=== PATIENT | male | born 1975 | race Caucasian/White ===

== ENCOUNTER 2017-01-06 06:01 | Inpatient (IN) | payer OTHER ==
[~2017-01-06] VITALS: Ht 180.3 cm; Wt 100.0 kg
[2017-01-06] MEDS ORDERED: NURSING VERBAL MED ORDER ONE (07:00)
[2017-01-06] MEDS: PATIENT'S ALLERGY INFO NEEDS ENTERED SCH ×2 (07:30→08:00)
[2017-01-06 09:51] VITALS: BP 107/70; PULSE 85; TEMP 36.7; BMI 30.7
[2017-01-06] MEDS ORDERED: QUET1TAB37 PO (10:13)
[2017-01-06] MEDS ORDERED: VENL150C56 PO (10:13)
[2017-01-06] MEDS ORDERED: PRAZ5CAP2 PO (10:13)
[2017-01-06] MEDS ORDERED: GABA-113 PO ×3 (10:13)
[2017-01-06] MEDS ORDERED: IBUP-1450 PO (10:13)
[2017-01-06] MEDS ORDERED: DIVA500T5 PO ×2 (10:13)
[2017-01-06] MEDS ORDERED: ACETAMINOPHEN 325 MG TAB PO PRN (11:45)
[2017-01-06] MEDS ORDERED: MAGNESIUM HYDROXIDE SUSP 30 ML UDC PO PRN (11:45)
[2017-01-06] MEDS ORDERED: hydrOXYzine HCL 25 MG TAB PO PRN ×2 (11:45)
[2017-01-06] MEDS ORDERED: BISMUTH SUBSALICYLATE PER ML OMNICELL CHARGE PO PRN (11:45)
[2017-01-06] MEDS ORDERED: SODIUM CHLORIDE 0.65% NA SOLN 45 ML (OCEAN) PRN (11:45)
[2017-01-06] MEDS ORDERED: ALUMINUM/MAGNESIUM SUSP 30 ML UDC PO PRN (11:45)
[2017-01-06] MEDS ORDERED: VENLAFAXINE HCL XR 150 MG CAPXR PO ONE (13:08)
[2017-01-06] MEDS ORDERED: GABAPENTIN 600 MG TAB PO ONE (13:08)
[2017-01-06] MEDS ORDERED: IBUPROFEN 600 MG TAB PO PRN (13:30)
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
[2017-01-06] MEDS: QUETIAPINE FUMARATE 300 MG TAB PO SCH (21:54)
[2017-01-06] MEDS: GABAPENTIN 600 MG TAB PO SCH (21:55)
[2017-01-06] MEDS: DIVALPROEX SODIUM 500 MG DELAY RELEASE TAB PO SCH (21:56)
[2017-01-06] MEDS ORDERED: PRAZOSIN HCL 1 MG CAP PO SCH (22:00)
[2017-01-07 06:58] VITALS: BP_SYST 104; BP_SYST 91; BP_DIAS 61; BP_DIAS 69; PULSE 80; PULSE 89; TEMP 36.5
[2017-01-07 07:02] VITALS: Ht 180.3 cm; Wt 100.0 kg
[2017-01-07] MEDS: NICOTINE 21 MG/24 HR TDSY EXT SCH (08:22)
[2017-01-07] MEDS: GABAPENTIN 600 MG TAB PO SCH ×3 (08:23→21:26)
[2017-01-07] MEDS ORDERED: VENLAFAXINE HCL XR 150 MG CAPXR PO SCH (09:00)
--- NOTE | 2017-01-07 12:21 | Psychiatric Progress Notes ---
Progress Note Date of Service January 07, 2017. Interval History Eugene Ortiz is a 41-year-old male who currently lives in an [facility] at a [facility] named [facility]. Eugene Ortiz was admitted on a 201 voluntary commitment on 01/06/17. Patient is admitted from the [facility] where he had arrived by ambulance after being discovered to have cut his left arm at his residence in an attempt of suicide. Information provided by the patient is considered to be reliable. Chief Complaint "I slept all day". Subjective Patient was seen & assessed interval progress reviewed with Nursing and 24hour chart reviewed. He slept in the afternoon yesterday did not go to groups, woke evening and had cereal watche a part of a movie, took his meds. He slept overnight and woke up around 645 for vitals and blood draw, remaining in bed since then. He feels tired today, went to community group. He felt uncomfortable "not ready for goals and being around others...I felt like my body was there but my mind was somewhere else" He continues to complain of nightmares "nothing has helped how real and vivid the dreams are." He continues to feel profoundly depressed and hopeless, with low energy and low motivation and has ongoing suicidal ideations passive at this time while inpatient. Further past history: He reports at [facility] working with Flako Merritt he had > 8months of mindfulness individual and group work. He states it helped him push out some of the intrusive trauma thoughts. "that helped me get through when I got asked to leave my prison" he states he was falsely accused of having a woman stay over when he was not. He initially stayed at a friends' houses for a few days at a time. He was at [employer] at [facility] and when his 30days was up, he went to [facility] for 3-4 weeks. Review of Systems ROS: left arm pain with tenderness, bilateral hand stiffness that is usual for his arthritis feels tired c/o weight gain with medications over the last 1 year o/w denies concerns other than above Sleep Information Total Hours of Sleep: 9.25 Meal Information Percent of Breakfast Consumed: 90 Percent of Lunch Consumed: 100 Percent of Dinner Consumed: 100 Mental Status Exam During interview pt is: alert and oriented Appearance: appropriately dressed, disheveled (just woken from bed), other ( left forearm with sutures, 1inch margin of erythema tender to light palpation, normal cap refill and range of motion of extremity, no drainage intact sensation ) Eye contact is: good Motor behavior is: steady gait & station, no abnormal motor movements Speech: normal in rate, rhythm & volume (low tone) Affect: depressed Mood is: depressed Thought process: goal directed, linear, logical, clear, coherent Thought content: hopelessness, worthlessness Suicidal thought are: present, Plan: denied, Intent: denied Homicidal thoughts are: denied Hallucinations: denies auditory, denies visual Intelligence estimated to be: average Insight: fair Judgement: poor Impression The patient is a 41yo male with a history of Bipolar disorder by history current depressed severe without psychotic features, PTSD and possibly ABHILASH with remitted substance use disorders (Alcohol, heroin, cocaine, narcotic pain pills , benzos) with >year abstinence form illicits and 9months from alcohol who had suicide attempt on 01/05/17 by cutting his forearm with intent to now under 201 voluntary admission willing for treatment. Plan (1) Bipolar disorder, most recent episode depressed 01/06/17 - inpatient care is least restrictive and most appropriate setting for care at this time continue depakote but optimize from 1500mg /d (level 49) to 2000mg/d and check level in 5days (on or after 01/11/17) -Continue effexor XR 300mg/d for now -Continue seroquel 600mg/hs for now -milieu, group therapy, safety planning, and consideration for ways to find meaning and purpose 01/07/17 - he is tired today unclear if this is depakote or not as he was sleeping all day yesterday as well - stop prazosin as no reported benefit - continue seroquel 600mg/hs - had effexor 300mg already today, will reduce it to 225mg tomorrow as not fully effective and plan to make room for wellbutrin trial - wellbutrin SR 100mg/AM starting 01/08/17 with plan to titrate up as reducing effexor (2) PTSD (post-traumatic stress disorder) 01/06/17 - medications as above, and group and milieu, monitor for s/sx of ABHILASH 01/07/17 - stop prazosin as not helpful for nightmares, see med changes under depression, watch anxiety and PTSD as we reduce effexor and add wellbutrin for mood above; consider if effexor is needed overtime (it is the only 5HT medication he has tolerated other than seroquel's indirect 5HT impact), he reports gabapentin has been most helpful for his anxiety over the past year, ( was increased from 600 tid to 600/600/1200 in the Fall 2015 to target poor sleep and he remains on this dose) (3) Polysubstance dependence in early, early partial, sustained full, or sustained partial remission Patient is abstinent from illicit substances and alcohol Prompt for setting ongoing goals for supports to remain abstinence after discharge (e.g. D&A counseling , NA, AA, etc) (4) Laceration 01/06/17 -keep clean and dry, change dressing daily,stitches to be removed in 10-14 days (between 01/15 and 01/21/17) prn ibuprofen or tylenol for discomfort 01/07/17 - erythema appears beginning of infection, consult to IM for assistance with choice and duration of ABx and assistance monitoring (used pen to draw line around wound for now to track degree of inflamation), continue other measures as above (5) Nicotine dependence The patient is a current heavy smoker but does not want to quit and declines brief intervention for tobaccos cessation. Accepted nicotine replacement patch. (6) Thyroid activity decreased 01/06/17 -repeat TFT's in AM to rule out impact of distress on levels prior to considering further tx of note low thyroid could be contributing to patient's depression 01/07/17 -repeat TSH WNL, and FT4 slightly low. Discussion with internal medicine and patient will not start levothyroxine at this time in favor of other medication changes, and recheck TFT's through PCM in 4 weeks to see if trending abnormally Discharge / Aftercare Planning Primary Care Physician: Name: Dr Renee Therapist: Name: keisha Guitar Repairer: Name: keisha Visit Code E&M Code: 19306 (>50% of the 45min spent in coordinating care discussing arm, thyroid and discuss r/b/se/a of multiple med changes) Inventory Assets Strengths: willingness for care compliant with medications Needs: social supports outpatient behavioral health providers safety Risk Factors Assessment Male: Yes : Yes /single/: Yes Higher / Fall in social status: Yes Mental Health Diagnoses: Yes Substance use disorders: Yes Previous attempt: No Previous attempt;highly lethal: No Previous attempt; planned: No Previous attempt; didn't tell: No Family history of suicide: Yes Previous psychiatric stay: Yes Hopelessness: Yes Smoker: Yes Protective Factors Assessment Catholic beliefs: Yes : No Responsible for young children: No Employed: No Stable relationships: No Supportive family: No Good rapport with provider: No Data Vital Signs Last 24 Hrs: Date Time Temp Pulse Resp B/P Pulse Ox O2 Delivery O2 Flow Rate FiO2 01/07/17 06:58 36.5 80 16 104/69 89 91/61 Meds Administered Last 24 Hrs: Meds Administered (Past 24Hrs) Medications (Trade) Dose Ordered Sig/Molly Route Start Time Stop Time Status Last Admin Dose Admin Miscellaneous Information (Patient'S Allergy Info Needs Entered) 1 ea Q30M N/A 01/06/17 07:30 01/06/17 11:39 DC 01/06/17 08:00 1 EA Nicotine (Nicoderm Cq 21MG Patch) 1 patch QAM EXT 01/07/17 09:00 02/06/17 08:59 01/07/17 08:22 1 PATCH Miscellaneous (Remove Nicoderm Patch) 1 ea QAM N/A 01/07/17 09:00 02/06/17 08:59 01/07/17 08:22 1 EA Divalproex Sodium (Depakote Delay Rel Tab) 2,000 mg HS PO 01/06/17 22:00 02/05/17 21:59 01/06/17 21:56 2,000 MG Venlafaxine HCl (effeXOR EXTENDED REL CAP) 300 mg QAM PO 01/07/17 09:00 02/06/17 08:59 01/07/17 08:22 300 MG Venlafaxine HCl (effeXOR EXTENDED REL CAP) 300 mg 1308 ONCE PO 01/06/17 13:08 01/06/17 13:31 DC 01/06/17 13:08 300 MG Prazosin HCl (Prazosin) 5 mg HS PO 01/06/17 22:00 02/05/17 21:59 01/06/17 21:54 5 MG Quetiapine Fumarate (seroQUEL TAB) 600 mg HS PO 01/06/17 22:00 02/05/17 21:59 01/06/17 21:54 600 MG Gabapentin (Neurontin Tab) 600 mg QAM PO 01/07/17 09:00 02/06/17 08:59 01/07/17 08:23 600 MG Gabapentin (Neurontin Tab) 600 mg 1308 ONCE PO 01/06/17 13:08 01/06/17 13:31 DC 01/06/17 15:10 600 MG Gabapentin (Neurontin Tab) 1,200 mg HS PO 01/06/17 22:00 02/05/17 21:59 01/06/17 21:55 1,200 MG Lab Results Last 24 Hrs: Last 24 Hours Test 01/07/17 06:57 Thyroid Stimulating Hormone (TSH) 3.380 uIu/ml Thyroxine (T4) 4.1 mcg/dl
[2017-01-07] MEDS ORDERED: BACITRACIN OINT 15 GM TUBE EXT ONE (14:00)
[2017-01-07] MEDS ORDERED: ALBUTEROL HFA 8 GM INHALER INH PRN (14:45)
--- NOTE | 2017-01-07 17:01 | Progress Note ---
Subjective Date of Service: January 07, 2017. Subjective Pt evaluation today including: conversation w/ patient, physical exam, chart review, lab review, review of inpatient medication list asked to see in regards to laceration on arm and redness. also had d/w psychiatry regarding TSH/T4. pt seen/examined, he notes that the redness around the laceration has been worsening. no f/c/s. last Tdap was actually earlier this year separately does not recall ever having HIV or hepatitis screening despite his prior IVDA - would appreciate screening if at all possible was wondering about if his liver was OK too due to past drug use and concern on prior vivitrol med/side effect no other acute complaints to me, ROS otherwise negative except for as above Review of Systems Constitutional: No chills, No fever, No sweats ros otherwise negative except for as above Objective Vital Signs Date Time Temp Pulse Resp B/P Pulse Ox O2 Delivery O2 Flow Rate FiO2 01/07/17 06:58 36.5 80 16 104/69 89 91/61 Physical Exam General Appearance: no apparent distress Eyes: EOMI ENT: hearing grossly normal, + pertinent finding (poor dentition) Neck: trachea midline Respiratory/Chest: no respiratory distress, no accessory muscle use Extremities: + pertinent finding (forearm laceration well approximated and sutured, very faint erythema surrounding it (already outlined) mildly red but quite tender. no underlying fluctuance, no exudate from wound) Neurologic/Psychiatric: staff development coordinator II-XII nml as tested, alert, normal mood/affect Skin: normal color, warm/dry Comments: labs / records from outside hospital reviewed Laboratory Results Last 24 Hours Test 01/07/17 06:57 01/07/17 16:49 Thyroid Stimulating Hormone (TSH) 3.380 uIu/ml Thyroxine (T4) 4.1 mcg/dl Assessment and Plan forearm laceration with mild surrounding cellulitis -up to date on Tdap -fortunately appearing early and mild - bacitracin QID for +/- 5 days depending on response -if worsens then will need to escalate to systemic antibiotics prior IVDA -HIV, hepatitis screens done elevated transaminases -very mild - ddx being if Hepatitis is (+) vs fatty liver vs other -follow periodically elevated TSH (at outside hospital - borderline here) and low T4 -d/w psych - quite reasonable to start synthroid 25mcg, repeat TSH ~4wks. discussed that with very mild elevation it's not likely that he's symptomatic from it, but certainly appearing consistent with early hypothyroidism, so reasonable to treat regardless otherwise as per psychiatry; will follow at least until clear that cellulitis on arm is resolved and above labs are back
[2017-01-07] MEDS: BACITRACIN OINT 15 GM TUBE EXT SCH ×2 (17:29→21:31)
[2017-01-07] MEDS: DIVALPROEX SODIUM 500 MG DELAY RELEASE TAB PO SCH (21:26)
[2017-01-07] MEDS: QUETIAPINE FUMARATE 300 MG TAB PO SCH (21:27)
[2017-01-08 07:02] VITALS: BP_SYST 109; BP_SYST 97; BP_DIAS 66; BP_DIAS 74; PULSE 76; PULSE 78; TEMP 36.3
[2017-01-08] MEDS: BACITRACIN OINT 15 GM TUBE EXT SCH ×4 (08:21→21:35)
[2017-01-08] MEDS: GABAPENTIN 600 MG TAB PO SCH ×3 (08:21→22:41)
[2017-01-08] MEDS: NICOTINE 21 MG/24 HR TDSY EXT SCH (08:21)
[2017-01-08] MEDS: VENLAFAXINE HCL XR 75 MG CAPXR PO SCH (08:21)
[2017-01-08] MEDS: BuPROPion SR 100 MG TABCR PO SCH (08:21)
--- NOTE | 2017-01-08 12:09 | Psychiatric Progress Notes ---
Progress Note Date of Service January 08, 2017. Interval History Eugene Ortiz is a 41-year-old male who currently lives in an [facility]. Eugene Ortiz was admitted on a 201 voluntary commitment on 01/06/17. Patient is admitted from the [facility] where he had arrived by ambulance after being discovered to have cut his left arm at his residence in an attempt of suicide. Information provided by the patient is considered to be reliable. Chief Complaint "The same as usual". Subjective Patient was seen & assessed interval progress reviewed with Treatment Team. Staff report he is isolative, spending most of his time in his room in bed, sat away from peers when eating, and refusing groups. Staff contacted the assisted where he had been staying, and were informed that they made a decision to allow the patient to return, provided he is looking for permanent housing. The hospitalist saw him to evaluate possible infection of his laceration, diagnosed cellulitis, and started bacitracin topical, to be reevaluated if worsening for possible systemic antibiotics. Also recommended HIV and hepatitis testing due to a history of IV drug use and elevated liver enzymes. In addition, they recommended Synthroid 25 mcg for low T4 and elevated TSH. The patient reports mood remains depressed, with no change since admission. He is not sure what his goals of treatment are, stating he continues to feel hopeless and suicidal. Exacerbating factor: anniversary of father's . He talks about feeling "mentally exhausted from my life, doesn't feel like I'm living, just existing." Continues to have early AM awakening, but appetite is good and is eating well. He is not showering or putting on clean clothes, hasn' t showered since the day before admission. He is isolating, "I'm real reclusive , don't want to talk to anybody." Has only gone to one group, "I don't really want to, I just don't see the point, how's that gonna help?" He states he feels safe here, but if he were discharged, "I'd probably do something else." He says he's spent 15 years in "institutions, group homes, foster care, group home, nursing home, as long as I have those 4 james around me, I feel safe." He says he is so frustrated with trying to transfer his MH services from his previous county to another that he is not going to keep working on it, blaming them for the problems, "I'll just go off my meds, and then I'll end up back in here." He talks about the incident at his assisted that led to him being kicked out, saying he got into an argument with a peer about a mess in the fridge, and says that he doesn't think it was fair, saying other people there have "done much worse." He denies AVH, but says he hears his own voice/thoughts in head, and endorses "racing thoughts, constantly thinking about all kinds of stuff at the same time." Denies anxiety/panic. Denies HI. Sleep Information Total Hours of Sleep: 9.25 Meal Information Percent of Breakfast Consumed: 100 Percent of Lunch Consumed: 100 Percent of Dinner Consumed: 100 Mental Status Exam During interview pt is: alert and oriented, cooperative Appearance: appropriately dressed, disheveled (malodorous, unkempt, holes in clothes, multiple tattoos), other Eye contact is: poor (fleeting eye contact) Motor behavior is: steady gait & station, no abnormal motor movements Speech: normal in rate, rhythm & volume (minimal) Affect: depressed, constricted Mood is: depressed Thought process: goal directed Thought content: hopelessness, worthlessness Suicidal thought are: present (does not feel safe outside the hospital, stating he would attempt suicide again), Plan: denied, Intent: denied Homicidal thoughts are: denied Hallucinations: denies auditory, denies visual Intelligence estimated to be: average Insight: fair Judgement: poor Impression The patient is a 41yo male with a history of Bipolar disorder by history current depressed severe without psychotic features, PTSD and possibly ABHILASH with remitted substance use disorders (Alcohol, heroin, cocaine, narcotic pain pills , benzos) with >year abstinence form illicits and 9months from alcohol who had suicide attempt on 01/05/17 by cutting his forearm with intent to now under 201 voluntary admission willing for treatment. Plan (1) Bipolar disorder, most recent episode depressed 01/06/17 - inpatient care is least restrictive and most appropriate setting for care at this time continue depakote but optimize from 1500mg /d (level 49) to 2000mg/d and check level in 5days (on or after 01/11/17) -Continue effexor XR 300mg/d for now -Continue seroquel 600mg/hs for now -milieu, group therapy, safety planning, and consideration for ways to find meaning and purpose 01/07/17 - he is tired today unclear if this is depakote or not as he was sleeping all day yesterday as well - stop prazosin as no reported benefit - continue seroquel 600mg/hs - had effexor 300mg already today, will reduce it to 225mg tomorrow as not fully effective and plan to make room for wellbutrin trial - wellbutrin SR 100mg/AM starting 01/08/17 with plan to titrate up as reducing effexor 01/08 - Continue current medications, consider further dose decrease in venlafaxine XR while increasing bupropion SR over the next several days. - Encourage patient to be out of his room more, interacting with others, and attending and participating in groups. - bone worker to assist with transfer of outpatient psychiatric care from his previous County to his current county of residence. (2) PTSD (post-traumatic stress disorder) 01/06/17 - medications as above, and group and milieu, monitor for s/sx of ABHILASH 01/07/17 - stop prazosin as not helpful for nightmares, see med changes under depression, watch anxiety and PTSD as we reduce effexor and add wellbutrin for mood above; consider if effexor is needed overtime (it is the only 5HT medication he has tolerated other than seroquel's indirect 5HT impact), he reports gabapentin has been most helpful for his anxiety over the past year, ( was increased from 600 tid to 600/600/1200 in the Fall 2015 to target poor sleep and he remains on this dose) (3) Polysubstance dependence in early, early partial, sustained full, or sustained partial remission Patient is abstinent from illicit substances and alcohol Prompt for setting ongoing goals for supports to remain abstinence after discharge (e.g. D&A counseling , NA, AA, etc) (4) Laceration 01/06/17 -keep clean and dry, change dressing daily,stitches to be removed in 10-14 days (between 01/15 and 01/21/17) prn ibuprofen or Tylenol for discomfort. 01/07/17 - erythema appears beginning of infection, consult to IM for assistance with choice and duration of ABx and assistance monitoring (used pen to draw line around wound for now to track degree of inflammation), continue other measures as above. 01/08/17 - Appreciate hospitalist's recommendations. - Continue bacitracin and monitoring of laceration. (5) Nicotine dependence The patient is a current heavy smoker but does not want to quit and declines brief intervention for tobaccos cessation. Accepted nicotine replacement patch. (6) Thyroid activity decreased 01/06/17 -repeat TFT's in AM to rule out impact of distress on levels prior to considering further tx of note low thyroid could be contributing to patient's depression 01/07/17 -repeat TSH WNL, and FT4 slightly low. Discussion with internal medicine and patient will not start levothyroxine at this time in favor of other medication changes, and recheck TFT's through PCM in 4 weeks to see if trending abnormally (7) IVDU (intravenous drug user) 01/08 - hepatitis B and C and HIV checked, and are negative. Discharge / Aftercare Planning Primary Care Physician: Name: Dr Renee Therapist: Name: keisha Curbstone Setter: Name: keisha Visit Code E&M Code: 85007 Inventory Assets Strengths: willingness for care compliant with medications Needs: social supports outpatient behavioral health providers safety Risk Factors Assessment Male: Yes : Yes /single/: Yes Higher / Fall in social status: Yes Mental Health Diagnoses: Yes Substance use disorders: Yes Previous attempt: No Previous attempt;highly lethal: No Previous attempt; planned: No Previous attempt; didn't tell: No Family history of suicide: Yes Previous psychiatric stay: Yes Hopelessness: Yes Smoker: Yes Protective Factors Assessment Moravian beliefs: Yes : No Responsible for young children: No Employed: No Stable relationships: No Supportive family: No Good rapport with provider: No Data Vital Signs Last 24 Hrs: Date Time Temp Pulse Resp B/P Pulse Ox O2 Delivery O2 Flow Rate FiO2 01/08/17 07:02 36.3 76 16 109/74 78 97/66 Meds Administered Last 24 Hrs: Meds Administered (Past 24Hrs) Medications (Trade) Dose Ordered Sig/Molly Route Start Time Stop Time Status Last Admin Dose Admin Nicotine (Nicoderm Cq 21MG Patch) 1 patch QAM EXT 01/07/17 09:00 02/06/17 08:59 01/08/17 08:21 1 PATCH Miscellaneous (Remove Nicoderm Patch) 1 ea QAM N/A 01/07/17 09:00 02/06/17 08:59 01/08/17 08:25 1 EA Divalproex Sodium (Depakote Delay Rel Tab) 2,000 mg HS PO 01/06/17 22:00 02/05/17 21:59 01/07/17 21:26 2,000 MG Venlafaxine HCl (effeXOR EXTENDED REL CAP) 300 mg QAM PO 01/07/17 09:00 01/07/17 12:07 DC 01/07/17 08:22 300 MG Venlafaxine HCl (effeXOR EXTENDED REL CAP) 300 mg 1308 ONCE PO 01/06/17 13:08 01/06/17 13:31 DC 01/06/17 13:08 300 MG Prazosin HCl (Prazosin) 5 mg HS PO 01/06/17 22:00 01/07/17 12:07 DC 01/06/17 21:54 5 MG Quetiapine Fumarate (seroQUEL TAB) 600 mg HS PO 01/06/17 22:00 02/05/17 21:59 01/07/17 21:27 600 MG Gabapentin (Neurontin Tab) 600 mg QAM PO 01/07/17 09:00 02/06/17 08:59 01/08/17 08:21 600 MG Gabapentin (Neurontin Tab) 600 mg QD@1200 PO 01/07/17 12:00 02/06/17 11:59 01/07/17 13:00 600 MG Gabapentin (Neurontin Tab) 600 mg 1308 ONCE PO 01/06/17 13:08 01/06/17 13:31 DC 01/06/17 15:10 600 MG Gabapentin (Neurontin Tab) 1,200 mg HS PO 01/06/17 22:00 02/05/17 21:59 01/07/17 21:26 1,200 MG Venlafaxine HCl (effeXOR EXTENDED REL CAP) 225 mg QAM PO 01/08/17 09:00 02/07/17 08:59 01/08/17 08:21 225 MG Bupropion HCl (Wellbutrin-Sr Tab) 100 mg QAM PO 01/08/17 09:00 02/07/17 08:59 01/08/17 08:21 100 MG Bacitracin (Bacitracin Oint) 1 appln QID EXT 01/07/17 17:00 02/06/17 16:59 01/08/17 08:21 1 APPLN Bacitracin (Bacitracin Oint) 1 appln 1400 ONCE EXT 01/07/17 14:00 01/07/17 14:01 DC 01/07/17 14:03 1 APPLN Albuterol (Ventolin Hfa Inhaler) 2 puffs Q4H PRN INH 01/07/17 14:45 02/06/17 14:44 01/07/17 14:50 2 PUFFS Lab Results Last 24 Hrs: Last 24 Hours Test 01/07/17 18:28 Hepatitis B Surface Antigen NEG Hepatitis C Antibody NEG HIV (1&2) Ab and P24 Ag, 4th Gener NEG
--- NOTE | 2017-01-08 14:44 | Hospitalist Progress Note ---
Hospitalist Progress Note Date of Service January 08, 2017. (Kodi Santillan PA-C) Subjective Pt evaluation today including: conversation w/ patient, physical exam, chart review, lab review Pain: Mild with direct palpation of left forearm. No other pain PO Intake: No difficulty, dysphagia, odynophagia Voiding: no voiding problems, no incontinence This is a 41 yo male that suffered an intentional laceration to his left forearm with a used razor blade that he had used previously for shaving. He was treated at [facility] where the ED provider sutured his laceration. He then was transferred to [facility] mental health unit and a medical consult was placed as the laceration was erythematous. He was prescribed bacitracin ointment +/- 5 days and follow up as needed. The patient states that he has no specific passive pain and no loss of function of his left hand. There has been no puss or bleeding from the site. He is not picking at the sutures. He denies fever or chills. He has no nausea or vomiting. He has no diarrhea or other s/s of infection. Oral intake is adequate. He has no c/o palpitations or chest pain. He has no other acute complaints. Additional Comments: A total of 12 systems was reviewed and is negative other than as listed above in the HPI All Other Systems: Reviewed and Negative (Kodi Santillan PA-C) Medications Current Inpatient Medications Medications (Trade) Dose Ordered Sig/Molly Route Start Time Stop Time Status Last Admin Dose Admin Acetaminophen (Tylenol Tab) 650 mg Q4H PRN PO 01/06/17 11:45 02/05/17 11:44 Al Hydroxide/Mg Hydroxide (Maalox Susp) 30 ml Q4H PRN PO 01/06/17 11:45 02/05/17 11:44 Bismuth Subsalicylate (Kaopectate Liqd) 15 ml DAILY PRN PO 01/06/17 11:45 02/05/17 11:44 Magnesium Hydroxide (Milk Of Magnesia Susp) 30 ml DAILY PRN PO 01/06/17 11:45 02/05/17 11:44 Sodium Chloride ([place] Nasal [place]) PRN PRN NA 01/06/17 11:45 02/05/17 11:44 Hydroxyzine HCl (Vistaril Tab) 50 mg HSZ PRN PO 01/06/17 11:45 02/05/17 11:44 Hydroxyzine HCl (Vistaril Tab) 25 mg Q4H PRN PO 01/06/17 11:45 02/05/17 11:44 Nicotine (Nicoderm Cq 21MG Patch) 1 patch QAM EXT 01/07/17 09:00 02/06/17 08:59 01/08/17 08:21 1 PATCH Miscellaneous (Remove Nicoderm Patch) 1 ea QAM N/A 01/07/17 09:00 02/06/17 08:59 01/08/17 08:25 1 EA Divalproex Sodium (Depakote Delay Rel Tab) 2,000 mg HS PO 01/06/17 22:00 02/05/17 21:59 01/07/17 21:26 2,000 MG Quetiapine Fumarate (seroQUEL TAB) 600 mg HS PO 01/06/17 22:00 02/05/17 21:59 01/07/17 21:27 600 MG Gabapentin (Neurontin Tab) 600 mg QAM PO 01/07/17 09:00 02/06/17 08:59 01/08/17 08:21 600 MG Gabapentin (Neurontin Tab) 600 mg QD@1200 PO 01/07/17 12:00 02/06/17 11:59 01/08/17 12:38 600 MG Gabapentin (Neurontin Tab) 1,200 mg HS PO 01/06/17 22:00 02/05/17 21:59 01/07/17 21:26 1,200 MG Ibuprofen (Motrin Tab) 600 mg QID PRN PO 01/06/17 13:30 02/05/17 13:29 Venlafaxine HCl (effeXOR EXTENDED REL CAP) 225 mg QAM PO 01/08/17 09:00 02/07/17 08:59 01/08/17 08:21 225 MG Bupropion HCl (Wellbutrin-Sr Tab) 100 mg QAM PO 01/08/17 09:00 02/07/17 08:59 01/08/17 08:21 100 MG Bacitracin (Bacitracin Oint) 1 appln QID EXT 01/07/17 17:00 02/06/17 16:59 01/08/17 08:21 1 APPLN Albuterol (Ventolin Hfa Inhaler) 2 puffs Q4H PRN INH 01/07/17 14:45 02/06/17 14:44 01/07/17 14:50 2 PUFFS (Kodi Santillan PA-C) Objective Vital Signs Date Time Temp Pulse Resp B/P Pulse Ox O2 Delivery O2 Flow Rate FiO2 01/08/17 07:02 36.3 76 16 109/74 78 97/66 (Kodi Santillan PA-C) Physical Exam General Appearance: WD/WN, no apparent distress Eyes: PERRL ENT: normal ENT inspection Neck: supple Extremities: normal range of motion, non-tender, + pertinent finding ( laceration to left forearm with marked area where erythema had been noted. Currently no erythema. No dehiscence. No evidence of infection. Strength equal in both upper extremities. No UE edema. Good radial pulses - equal bilaterally. No streaking of arm. Sutures secure) Neurologic/Psychiatric: alert, normal mood/affect, oriented x 3 Skin: warm/dry (Kodi Santillan PA-C) Laboratory Results Last 24 Hours Test 01/07/17 18:28 Hepatitis B Surface Antigen NEG Hepatitis C Antibody NEG HIV (1&2) Ab and P24 Ag, 4th Gener NEG (Kodi Santillan PA-C) Assessment and Plan LEFT FOREARM LACERATION Sutures in place and secure Bacitratcin as prescribed by Dr. Ni No further evidence of infection Afebrile No evidence of dehiscence, infection, puss No loss of function in the left hand. Minimal tenderness with dep palpation Up to date with TdAP HYPOTHYROIDISM Dr. Ni had suggested low dose levothyroxine No evidence sheeba this has been started Would refer to outpatient PCP to follow PSYCH Continue inpatient treatment per Dr. Peraza Continue meds per Dr. Peraza HX MRSA No active issues Afebrile Continue isolation precautions as per policy DVT PROPHYLAXIS Patient ambulating frequently on the unit We will sign off at his time. Please feel free to reconsult as needed. Thank you for including us in the care of this patient. Please refer to Dr. Hanna's addendum for further recommendations Continued [facility] stay due to: other (inpatient in [facility]) Discharge planning: uncertain (Kodi Santillan PA-C) Reviewed: Pt Seen/Exam by Me (Tita Hanna MD) History Physician Credit Card Clerk Supervision Note: I interviewed and examined the patient. Discussed with LILIAM Santillan and agree with findings and plan as documented in the note. Any exceptions or clarifications are listed here: Pt doing well, no real complaints. Vitals reviewed, afebrile SKin: left ventral forearm with 6 cm linear lac with sutures in place, no surrounding erythema, no drainage, appears intact and healing well 41 yo male with bipolar disorder, suicidal gesture by cutting left forearm, with questionable wound infection. -no signs of infection at this time -can stop bacitracin -remove sutures at 7-10 days from time of placement -will sign off but am happy to return to remove sutures when due or for any further concerns Documented By: Tita Hanna (Tita Hanna MD)
[2017-01-08] MEDS: DIVALPROEX SODIUM 500 MG DELAY RELEASE TAB PO SCH (22:40)
[2017-01-08] MEDS: QUETIAPINE FUMARATE 300 MG TAB PO SCH (22:41)
[2017-01-09 07:05] VITALS: BP_SYST 102; BP_SYST 96; BP_DIAS 61; BP_DIAS 67; PULSE 81; PULSE 86; TEMP 36.4
[2017-01-09] MEDS: NICOTINE 21 MG/24 HR TDSY EXT SCH (08:50)
[2017-01-09] MEDS: VENLAFAXINE HCL XR 75 MG CAPXR PO SCH (08:51)
[2017-01-09] MEDS: GABAPENTIN 600 MG TAB PO SCH ×3 (08:51→22:41)
[2017-01-09] MEDS: BuPROPion SR 100 MG TABCR PO SCH (08:51)
--- NOTE | 2017-01-09 11:22 | Psychiatric Progress Notes ---
Progress Note Date of Service January 09, 2017. Interval History Eugene Ortiz is a 41-year-old male who currently [place] at a [facility]. Eugene Ortiz was admitted on a 201 voluntary commitment on 01/06/17. Patient is admitted from the [facility] where he had arrived by ambulance after being discovered to have cut his left arm at his residence in an attempt of suicide. Information provided by the patient is considered to be reliable. Chief Complaint "Still tired". Subjective Patient was seen & assessed interval progress reviewed with nursing. Staff report that he was out of his room more yesterday, but did not engage much with staff or peers. He did attend some groups. He met with the shipping & receiving lead, and was seen by the hospitalist, who felt that his laceration was healing well and signed off. He states he continues to wake up early and can't fall back asleep , and then struggles to get out of bed in the morning, missing the first 2 groups today. He is irritated with staff encouraging him to get up and go to groups, but is agreeing to go to group therapy now. He denies any side effects with his recent medication adjustments, and would like to continue to increase the bupropion while decreasing the venlafaxine XR. Mood is "about the same, still feel down," and although he feels safe in the hospital, he does not feel safe leaving at this time. He states that he has no one who could pick him up to take him back to his halfway at discharge, and no money to take a bus. He is hoping to be ready for discharge by the end of the week. He has not followed through on contacting the outpatient mental health clinic in his county , stating that he needs someone else to "kick the door open for me," noting that he is frustrated by his previous attempts to have his care transferred from his previous county [place] current county. Sleep Information Total Hours of Sleep: 7.50 Meal Information Percent of Breakfast Consumed: 100 Percent of Lunch Consumed: 100 Percent of Dinner Consumed: 100 Mental Status Exam During interview pt is: alert and oriented, cooperative Appearance: appropriately dressed, disheveled (unkempt, holes in clothes, multiple tattoos) Eye contact is: poor (fleeting eye contact) Motor behavior is: steady gait & station, no abnormal motor movements Speech: normal in rate, rhythm & volume Affect: depressed, irritable, constricted Mood is: depressed ("the same"), irritable Thought process: goal directed Thought content: hopelessness, worthlessness Suicidal thought are: present (does not feel safe outside the hospital, stating he thinks he would attempt suicide again), Plan: denied, Intent: denied Homicidal thoughts are: denied Hallucinations: denies auditory, denies visual Intelligence estimated to be: average Insight: fair Judgement: poor Left upper extremity lacerations and sutures examined. Wound is well approximated, clean, dry, and intact, without signs of infection including erythema, exudate, or bleeding. Impression The patient is a 41yo male with a history of Bipolar disorder by history current depressed severe without psychotic features, PTSD and possibly ABHILASH with remitted substance use disorders (Alcohol, heroin, cocaine, narcotic pain pills , benzos) with >year abstinence form illicits and 9months from alcohol who had suicide attempt on 01/05/17 by cutting his forearm with intent to now under 201 voluntary admission willing for treatment. Plan (1) Bipolar disorder, most recent episode depressed 01/06/17 - inpatient care is least restrictive and most appropriate setting for care at this time continue depakote but optimize from 1500mg /d (level 49) to 2000mg/d and check level in 5days (on or after 01/11/17) -Continue effexor XR 300mg/d for now -Continue seroquel 600mg/hs for now -milieu, group therapy, safety planning, and consideration for ways to find meaning and purpose 01/07/17 - he is tired today unclear if this is depakote or not as he was sleeping all day yesterday as well - stop prazosin as no reported benefit - continue seroquel 600mg/hs - had effexor 300mg already today, will reduce it to 225mg tomorrow as not fully effective and plan to make room for wellbutrin trial - wellbutrin SR 100mg/AM starting 01/08/17 with plan to titrate up as reducing effexor 01/08 - Continue current medications, consider further dose decrease in venlafaxine XR while increasing bupropion SR over the next several days. - Encourage patient to be out of his room more, interacting with others, and attending and participating in groups. - load out worker to assist with transfer of outpatient psychiatric care from his previous County to his current county of residence. 01/09 - Decrease venlafaxine XR to 150 mg daily, and increase bupropion SR to 100 mg twice a day. - Continue gabapentin, Depakote, and quetiapine. Fasting labs for monitoring on an atypical antipsychotic ordered for tomorrow morning. - Continue to encourage the patient to be out of his room more, interacting with others, and attending and participating in groups. - load out worker to assist with transfer of outpatient psychiatric care from his previous County to his current county of residence, and in finding transportation home at the time of discharge. (2) PTSD (post-traumatic stress disorder) 01/06/17 - medications as above, and group and milieu, monitor for s/sx of ABHILASH 01/07/17 - stop prazosin as not helpful for nightmares, see med changes under depression, watch anxiety and PTSD as we reduce effexor and add wellbutrin for mood above; consider if effexor is needed overtime (it is the only 5HT medication he has tolerated other than seroquel's indirect 5HT impact), he reports gabapentin has been most helpful for his anxiety over the past year, ( was increased from 600 tid to 600/600/1200 in the Fall 2015 to target poor sleep and he remains on this dose) (3) Polysubstance dependence in early, early partial, sustained full, or sustained partial remission Patient is abstinent from illicit substances and alcohol Prompt for setting ongoing goals for supports to remain abstinence after discharge (e.g. D&A counseling , NA, AA, etc) (4) Laceration 01/06/17 -keep clean and dry, change dressing daily,stitches to be removed in 10-14 days (between 01/15 and 01/21/17) prn ibuprofen or Tylenol for discomfort. 01/07/17 - erythema appears beginning of infection, consult to IM for assistance with choice and duration of ABx and assistance monitoring (used pen to draw line around wound for now to track degree of inflammation), continue other measures as above. 01/08/17 - Appreciate hospitalist's recommendations. - Continue bacitracin and monitoring of laceration. 01/09/17 - Laceration appears to be healing well, without signs of infection. Continue wound care and bacitracin as needed. Suture removal as above. (5) Nicotine dependence The patient is a current heavy smoker but does not want to quit and declines brief intervention for tobaccos cessation. Accepted nicotine replacement patch. (6) Thyroid activity decreased 01/06/17 -repeat TFT's in AM to rule out impact of distress on levels prior to considering further tx of note low thyroid could be contributing to patient's depression 01/07/17 -repeat TSH WNL, and FT4 slightly low. Discussion with internal medicine and patient will not start levothyroxine at this time in favor of other medication changes, and recheck TFT's through PCM in 4 weeks to see if trending abnormally (7) IVDU (intravenous drug user) 01/08 - hepatitis B and C and HIV checked, and are negative. Discharge / Aftercare Planning Primary Care Physician: Name: Dr Renee Therapist: Name: keisha Green Lumber Grader: Name: keisha Visit Code E&M Code: 37720 Inventory Assets Strengths: willingness for care compliant with medications Needs: social supports outpatient behavioral health providers safety Risk Factors Assessment Male: Yes : Yes /single/: Yes Higher / Fall in social status: Yes Mental Health Diagnoses: Yes Substance use disorders: Yes Previous attempt: No Previous attempt;highly lethal: No Previous attempt; planned: No Previous attempt; didn't tell: No Family history of suicide: Yes Previous psychiatric stay: Yes Hopelessness: Yes Smoker: Yes Protective Factors Assessment Zoroastrianism beliefs: Yes : No Responsible for young children: No Employed: No Stable relationships: No Supportive family: No Good rapport with provider: No Data Vital Signs Last 24 Hrs: Date Time Temp Pulse Resp B/P Pulse Ox O2 Delivery O2 Flow Rate FiO2 01/09/17 07:05 36.4 81 16 102/67 86 96/61 Meds Administered Last 24 Hrs: Meds Administered (Past 24Hrs) Medications (Trade) Dose Ordered Sig/Molly Route Start Time Stop Time Status Last Admin Dose Admin Gabapentin (Neurontin Tab) 600 mg QD@1200 PO 01/07/17 12:00 02/06/17 11:59 01/08/17 12:38 600 MG Venlafaxine HCl (effeXOR EXTENDED REL CAP) 225 mg QAM PO 01/08/17 09:00 02/07/17 08:59 01/09/17 08:51 225 MG Bupropion HCl (Wellbutrin-Sr Tab) 100 mg QAM PO 01/08/17 09:00 02/07/17 08:59 01/09/17 08:51 100 MG Bacitracin (Bacitracin Oint) 1 appln QID EXT 01/07/17 17:00 01/08/17 21:49 DC 01/08/17 21:35 1 APPLN Bacitracin (Bacitracin Oint) 1 appln 1400 ONCE EXT 01/07/17 14:00 01/07/17 14:01 DC 01/07/17 14:03 1 APPLN Albuterol (Ventolin Hfa Inhaler) 2 puffs Q4H PRN INH 01/07/17 14:45 02/06/17 14:44 01/07/17 14:50 2 PUFFS
[2017-01-09] MEDS: NICOTINE POLACRILEX 2 MG GUM MT PRN (20:56)
[2017-01-09] MEDS: QUETIAPINE FUMARATE 300 MG TAB PO SCH (22:41)
[2017-01-09] MEDS: DIVALPROEX SODIUM 500 MG DELAY RELEASE TAB PO SCH (22:41)
[2017-01-10 07:04] VITALS: BP_SYST 101; BP_SYST 111; BP_DIAS 68; BP_DIAS 76; PULSE 87; PULSE 94; TEMP 36.3
[2017-01-10] MEDS: VENLAFAXINE HCL XR 75 MG CAPXR PO SCH (09:19)
[2017-01-10] MEDS: NICOTINE 21 MG/24 HR TDSY EXT SCH (09:19)
[2017-01-10] MEDS: GABAPENTIN 600 MG TAB PO SCH ×3 (09:19→22:35)
[2017-01-10] MEDS: BuPROPion SR 100 MG TABCR PO SCH ×2 (09:20→17:03)
--- NOTE | 2017-01-10 11:38 | Psychiatric Progress Notes ---
Progress Note Date of Service January 10, 2017. Interval History Eugene Ortiz is a 41-year-old male who currently lives [place] at a [facility] named [facility]. Eugene Ortiz was admitted on a 201 voluntary commitment on 01/06/17. Patient is admitted from the [facility] where he had arrived by ambulance after being discovered to have cut his left arm at his residence in an attempt of suicide. Information provided by the patient is considered to be reliable. Chief Complaint "Like a 5 I guess". Subjective Patient was seen & assessed interval progress reviewed with Treatment Team. Staff report he remains flat, withdrawn, and isolative. He attended some groups yesterday. He was seen in his room this morning, as he has returned to bed, stating he did not sleep well and is tired. He says he went to some groups yesterday, but didn't think any of it applied to him. He says he has " no idea" what would be helpful for him while he is here. He says his mood is improved "maybe a little bit" since admission, and he denies suicidal thoughts. He denies side effects to medications. Sleep Information Total Hours of Sleep: 6.00 Meal Information Percent of Breakfast Consumed: 100 Percent of Lunch Consumed: 100 Percent of Dinner Consumed: 100 Mental Status Exam During interview pt is: alert and oriented, cooperative (partially) Appearance: appropriately dressed, disheveled (unkempt, holes in clothes, multiple tattoos) Eye contact is: poor Motor behavior is: no abnormal motor movements Speech: normal in rate, rhythm & volume Affect: depressed, constricted Mood is: depressed Thought process: goal directed Thought content: hopelessness, worthlessness Suicidal thought are: denied Homicidal thoughts are: denied Hallucinations: denies auditory, denies visual Intelligence estimated to be: average Insight: fair Judgement: poor Impression The patient is a 41yo male with a history of Bipolar disorder by history current depressed severe without psychotic features, PTSD and possibly ABHILASH with remitted substance use disorders (Alcohol, heroin, cocaine, narcotic pain pills , benzos) with >year abstinence form illicits and 9months from alcohol who had suicide attempt on 01/05/17 by cutting his forearm with intent to now under 201 voluntary admission. Plan (1) Bipolar disorder, most recent episode depressed 01/06/17 - inpatient care is least restrictive and most appropriate setting for care at this time continue depakote but optimize from 1500mg /d (level 49) to 2000mg/d and check level in 5days (on or after 01/11/17) -Continue effexor XR 300mg/d for now -Continue seroquel 600mg/hs for now -milieu, group therapy, safety planning, and consideration for ways to find meaning and purpose 01/07/17 - he is tired today unclear if this is depakote or not as he was sleeping all day yesterday as well - stop prazosin as no reported benefit - continue seroquel 600mg/hs - had effexor 300mg already today, will reduce it to 225mg tomorrow as not fully effective and plan to make room for wellbutrin trial - wellbutrin SR 100mg/AM starting 01/08/17 with plan to titrate up as reducing effexor 01/08 - Continue current medications, consider further dose decrease in venlafaxine XR while increasing bupropion SR over the next several days. - Encourage patient to be out of his room more, interacting with others, and attending and participating in groups. - poultry husbandry worker to assist with transfer of outpatient psychiatric care from his previous [place] to his current county of residence. 01/09 - Decrease venlafaxine XR to 150 mg daily, and increase bupropion SR to 100 mg twice a day. - Continue gabapentin, Depakote, and quetiapine. Fasting labs for monitoring on an atypical antipsychotic ordered for tomorrow morning. - Continue to encourage the patient to be out of his room more, interacting with others, and attending and participating in groups. - poultry husbandry worker to assist with transfer of outpatient psychiatric care from his previous County to his current county of residence, and in finding transportation home at the time of discharge. 01/10 - Continue current medications. (2) PTSD (post-traumatic stress disorder) 01/06/17 - medications as above, and group and milieu, monitor for s/sx of ABHILASH 01/07/17 - stop prazosin as not helpful for nightmares, see med changes under depression, watch anxiety and PTSD as we reduce effexor and add wellbutrin for mood above; consider if effexor is needed overtime (it is the only 5HT medication he has tolerated other than seroquel's indirect 5HT impact), he reports gabapentin has been most helpful for his anxiety over the past year, ( was increased from 600 tid to 600/600/1200 in the Fall 2015 to target poor sleep and he remains on this dose) (3) Polysubstance dependence in early, early partial, sustained full, or sustained partial remission Patient is abstinent from illicit substances and alcohol Prompt for setting ongoing goals for supports to remain abstinence after discharge (e.g. D&A counseling , NA, AA, etc) (4) Laceration 01/06/17 -keep clean and dry, change dressing daily,stitches to be removed in 10-14 days (between 01/15 and 01/21/17) prn ibuprofen or Tylenol for discomfort. 01/07/17 - erythema appears beginning of infection, consult to IM for assistance with choice and duration of ABx and assistance monitoring (used pen to draw line around wound for now to track degree of inflammation), continue other measures as above. 01/08/17 - Appreciate hospitalist's recommendations. - Continue bacitracin and monitoring of laceration. 01/09/17 - Laceration appears to be healing well, without signs of infection. Continue wound care and bacitracin as needed. Suture removal as above. (5) Nicotine dependence The patient is a current heavy smoker but does not want to quit and declines brief intervention for tobaccos cessation. Accepted nicotine replacement patch. (6) Thyroid activity decreased 01/06/17 -repeat TFT's in AM to rule out impact of distress on levels prior to considering further tx of note low thyroid could be contributing to patient's depression 01/07/17 -repeat TSH WNL, and FT4 slightly low. Discussion with internal medicine and patient will not start levothyroxine at this time in favor of other medication changes, and recheck TFT's through PCM in 4 weeks to see if trending abnormally (7) IVDU (intravenous drug user) 01/08 - hepatitis B and C and HIV checked, and are negative. Discharge / Aftercare Planning Primary Care Physician: Name: Dr Renee Therapist: Name: keisha Functional Consultant: Name: keisha Visit Code E&M Code: 02466 Inventory Assets Strengths: willingness for care compliant with medications Needs: social supports outpatient behavioral health providers safety Risk Factors Assessment Male: Yes : Yes /single/: Yes Higher / Fall in social status: Yes Mental Health Diagnoses: Yes Substance use disorders: Yes Previous attempt: No Previous attempt;highly lethal: No Previous attempt; planned: No Previous attempt; didn't tell: No Family history of suicide: Yes Previous psychiatric stay: Yes Hopelessness: Yes Smoker: Yes Protective Factors Assessment Synagogue beliefs: Yes : No Responsible for young children: No Employed: No Stable relationships: No Supportive family: No Good rapport with provider: No Data Vital Signs Last 24 Hrs: Date Time Temp Pulse Resp B/P Pulse Ox O2 Delivery O2 Flow Rate FiO2 01/10/17 07:04 36.3 87 16 111/76 94 101/68 Meds Administered Last 24 Hrs: Meds Administered (Past 24Hrs) Medications (Trade) Dose Ordered Sig/Molly Route Start Time Stop Time Status Last Admin Dose Admin Bupropion HCl (Wellbutrin-Sr Tab) 100 mg BID17 PO 01/10/17 09:00 02/09/17 08:59 01/10/17 09:20 100 MG Venlafaxine HCl (effeXOR EXTENDED REL CAP) 150 mg QAM PO 01/10/17 09:00 02/09/17 08:59 01/10/17 09:19 150 MG Nicotine Polacrilex (Nicorette 2MG Gum) 1 piece Q1H PRN MT 01/09/17 20:45 02/08/17 20:44 01/09/17 20:56 1 PIECE Lab Results Last 24 Hrs: Last 24 Hours Test 01/10/17 07:40 Fasting Glucose 90 mg/dl Triglycerides Level 247 mg/dl Cholesterol Level 189 mg/dl HDL Cholesterol 38 mg/dl LDL Cholesterol, Calculated 102 mg/dl VLDL Cholesterol, Calculated 49 mg/dl Cholesterol/HDL Ratio 5.0
[2017-01-10] MEDS: NICOTINE POLACRILEX 2 MG GUM MT PRN (15:51)
[2017-01-10] MEDS: DIVALPROEX SODIUM 500 MG DELAY RELEASE TAB PO SCH (22:34)
[2017-01-10] MEDS: QUETIAPINE FUMARATE 300 MG TAB PO SCH (22:36)
[2017-01-11 07:10] VITALS: BP_SYST 104; BP_SYST 94; BP_DIAS 66; BP_DIAS 75; PULSE 90; PULSE 91; TEMP 36.4
[2017-01-11] MEDS: GABAPENTIN 600 MG TAB PO SCH ×3 (10:03→22:36)
[2017-01-11] MEDS: VENLAFAXINE HCL XR 75 MG CAPXR PO SCH (10:03)
[2017-01-11] MEDS: BuPROPion SR 100 MG TABCR PO SCH ×2 (10:03→17:00)
[2017-01-11] MEDS: NICOTINE 21 MG/24 HR TDSY EXT SCH (10:03)
--- NOTE | 2017-01-11 12:20 | Psychiatric Progress Notes ---
Progress Note Date of Service January 11, 2017. Interval History Eugene Ortiz is a 41-year-old male who [place] [facility]. Eugene Ortiz was admitted on a 201 voluntary commitment on 01/06/17. Patient is admitted from the [facility] where he had arrived by ambulance after being discovered to have cut his left arm at his residence in an attempt of suicide. Information provided by the patient is considered to be reliable. Chief Complaint "Pretty good". Subjective Patient was seen & assessed interval progress reviewed with nursing. Staff report he only goes to some groups, and has limited participation. He was aroused from bed, stating he missed breakfast in the first to groups as despite sleeping well overnight, he is still tired. He states that he usually sleeps in until at least 10 AM. Appetite is good, mood is improved and feels more optimistic about the future. He denies SI, and continues to state he wants to leave tomorrow, although he says he needs someone to get him a bus ticket as he has no money. 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 He says it is hard to find a job in those matt that is not full-time, but he doesn't want to work full-time, because "then I can't get my social security." When encouraged to work full-time if he is able, while reviewing the benefits of this to mood, self-esteem, and the financial aspect, he states "you don't understand, there are days I just don't feel like getting out of bed or going to work." He says he is not sure if his medications are working, because he continues to have low energy and poor motivation. Sleep Information Total Hours of Sleep: 6.50 Meal Information Percent of Breakfast Consumed: 0 Percent of Lunch Consumed: 100 Percent of Dinner Consumed: 100 Mental Status Exam During interview pt is: alert and oriented, cooperative (partially) Appearance: appropriately dressed, disheveled Eye contact is: poor Motor behavior is: no abnormal motor movements Speech: normal in rate, rhythm & volume Affect: blunted Mood is: other ("pretty good") Thought process: goal directed Thought content: reality based without delusions Suicidal thought are: denied Homicidal thoughts are: denied Hallucinations: denies auditory, denies visual Intelligence estimated to be: average Insight: fair Judgement: poor Impression The patient is a 41yo male with a history of Bipolar disorder by history current depressed severe without psychotic features, PTSD and possibly ABHILASH with remitted substance use disorders (Alcohol, heroin, cocaine, narcotic pain pills , benzos) with >1 year abstinence form illicit drugs and 9 months from alcohol, who had suicide attempt on 01/05/17 by cutting his forearm with intent to now under 201 voluntary admission. Plan (1) Bipolar disorder, most recent episode depressed 01/06/17 - inpatient care is least restrictive and most appropriate setting for care at this time continue depakote but optimize from 1500mg /d (level 49) to 2000mg/d and check level in 5days (on or after 01/11/17) -Continue effexor XR 300mg/d for now -Continue seroquel 600mg/hs for now -milieu, group therapy, safety planning, and consideration for ways to find meaning and purpose 01/07/17 - he is tired today unclear if this is depakote or not as he was sleeping all day yesterday as well - stop prazosin as no reported benefit - continue seroquel 600mg/hs - had effexor 300mg already today, will reduce it to 225mg tomorrow as not fully effective and plan to make room for wellbutrin trial - wellbutrin SR 100mg/AM starting 01/08/17 with plan to titrate up as reducing effexor 01/08 - Continue current medications, consider further dose decrease in venlafaxine XR while increasing bupropion SR over the next several days. - Encourage patient to be out of his room more, interacting with others, and attending and participating in groups. - tangled yarn worker to assist with transfer of outpatient psychiatric care from [place] current county [place] residence. 01/09 - Decrease venlafaxine XR to 150 mg daily, and increase bupropion SR to 100 mg twice a day. - Continue gabapentin, Depakote, and quetiapine. Fasting labs for monitoring on an atypical antipsychotic ordered for tomorrow morning. - Continue to encourage the patient to be out of his room more, interacting with others, and attending and participating in groups. - tangled yarn worker to assist with transfer of outpatient psychiatric care from his previous County to his current county of residence, and in finding transportation home at the time of discharge. 01/10 - Continue current medications. - Monitoring on an atypical antipsychotic: Fasting lipid profile notable for elevated triglycerides of 247, but otherwise normal. Fasting glucose normal at 90. 01/11 - Depakote trough level ordered for tomorrow. Continue Depakote, bupropion SR 100 mg twice a day, gabapentin, and quetiapine. - Patient reported to nursing that he had aches in his legs and arms, which he thinks may be due to venlafaxine withdrawal, so further dose adjustments not made today, and he will have to complete the taper as an outpatient. - Referral made for outpatient care, appointment still pending. (2) PTSD (post-traumatic stress disorder) 01/06/17 - medications as above, and group and milieu, monitor for s/sx of ABHILASH 01/07/17 - stop prazosin as not helpful for nightmares, see med changes under depression, watch anxiety and PTSD as we reduce effexor and add wellbutrin for mood above; consider if effexor is needed overtime (it is the only 5HT medication he has tolerated other than seroquel's indirect 5HT impact), he reports gabapentin has been most helpful for his anxiety over the past year, ( was increased from 600 tid to 600/600/1200 in the Fall 2015 to target poor sleep and he remains on this dose) (3) Polysubstance dependence in early, early partial, sustained full, or sustained partial remission Patient is abstinent from illicit substances and alcohol Prompt for setting ongoing goals for supports to remain abstinence after discharge (e.g. D&A counseling , NA, AA, etc) (4) Laceration 01/06/17 -keep clean and dry, change dressing daily,stitches to be removed in 10-14 days (between 01/15 and 01/21/17) prn ibuprofen or Tylenol for discomfort. 01/07/17 - erythema appears beginning of infection, consult to IM for assistance with choice and duration of ABx and assistance monitoring (used pen to draw line around wound for now to track degree of inflammation), continue other measures as above. 01/08/17 - Appreciate hospitalist's recommendations. - Continue bacitracin and monitoring of laceration. 01/09/17 - Laceration appears to be healing well, without signs of infection. Continue wound care and bacitracin as needed. Suture removal as above. 01/11 - Follow-up with PCP on January 22 for suture removal. (5) Nicotine dependence The patient is a current heavy smoker but does not want to quit and declines brief intervention for tobaccos cessation. Accepted nicotine replacement patch. (6) Thyroid activity decreased 01/06/17 -repeat TFT's in AM to rule out impact of distress on levels prior to considering further tx of note low thyroid could be contributing to patient's depression 01/07/17 -repeat TSH WNL, and FT4 slightly low. Discussion with internal medicine and patient will not start levothyroxine at this time in favor of other medication changes, and recheck TFT's through PCM in 4 weeks to see if trending abnormally. (7) IVDU (intravenous drug user) 01/08 - hepatitis B and C and HIV checked, and are negative. (8) Lives in homeless fpc Patient is unemployed and living just for [facility]. He is encouraged to seek out employment, and had an extensive discussion on 01/11/2017 that having mental illness does not mean he is unable to work, and working may in fact actually help him with his mood, self-esteem, and financial problems. Discharge / Aftercare Planning Primary Care Physician: Name: Dr Jo Phone Number: Date of Appointment: Jan 22, 2017 Time of Appointment: 12:00pm Therapist: Name: keisha Gasoline Pump Installer: Name: keisha Visit Code E&M Code: 40371 Inventory Assets Strengths: willingness for care compliant with medications Needs: social supports outpatient behavioral health providers safety Risk Factors Assessment Male: Yes : Yes /single/: Yes Higher / Fall in social status: Yes Mental Health Diagnoses: Yes Substance use disorders: Yes Previous attempt: No Previous attempt;highly lethal: No Previous attempt; planned: No Previous attempt; didn't tell: No Family history of suicide: Yes Previous psychiatric stay: Yes Hopelessness: Yes Smoker: Yes Protective Factors Assessment Hindu beliefs: Yes : No Responsible for young children: No Employed: No Stable relationships: No Supportive family: No Good rapport with provider: No Data Vital Signs Last 24 Hrs: Date Time Temp Pulse Resp B/P Pulse Ox O2 Delivery O2 Flow Rate FiO2 01/11/17 07:10 36.4 90 16 94/66 91 104/75 Meds Administered Last 24 Hrs: Meds Administered (Past 24Hrs) Medications (Trade) Dose Ordered Sig/Molly Route Start Time Stop Time Status Last Admin Dose Admin Bupropion HCl (Wellbutrin-Sr Tab) 100 mg BID17 PO 01/10/17 09:00 02/09/17 08:59 01/11/17 10:03 100 MG Venlafaxine HCl (effeXOR EXTENDED REL CAP) 150 mg QAM PO 01/10/17 09:00 02/09/17 08:59 01/11/17 10:03 150 MG Nicotine Polacrilex (Nicorette 2MG Gum) 1 piece Q1H PRN MT 01/09/17 20:45 02/08/17 20:44 01/10/17 15:51 1 PIECE
[2017-01-11] MEDS: NICOTINE POLACRILEX 2 MG GUM MT PRN ×2 (18:41→19:51)
[2017-01-11] MEDS: DIVALPROEX SODIUM 500 MG DELAY RELEASE TAB PO SCH (22:35)
[2017-01-11] MEDS: QUETIAPINE FUMARATE 300 MG TAB PO SCH (22:36)
[2017-01-12 07:10] VITALS: BP_SYST 108; BP_SYST 113; BP_DIAS 75; BP_DIAS 80; PULSE 84; PULSE 90; TEMP 36.5
[2017-01-12] MEDS: BuPROPion SR 100 MG TABCR PO SCH (08:49)
[2017-01-12] MEDS: VENLAFAXINE HCL XR 75 MG CAPXR PO SCH (08:49)
[2017-01-12] MEDS: NICOTINE 21 MG/24 HR TDSY EXT SCH (08:49)
[2017-01-12] MEDS: GABAPENTIN 600 MG TAB PO SCH ×2 (08:49→12:02)
[2017-01-12] MEDS ORDERED: WLLSR100 PO (09:17)
[2017-01-12] MEDS ORDERED: VENL150C56 PO (09:17)
[2017-01-12] MEDS ORDERED: DIVA500T5 PO ×2 (09:17→11:42)
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
[2017-01-12] MEDS: NICOTINE POLACRILEX 2 MG GUM MT PRN (12:32)
== END 2017-01-12 15:37 | disposition home or self-care (01) | DRG 885 ==
LOC: ENRESERVTM → ENRESERVDT → C.MHU 08:07
PROVIDERS: ADMIT Psychiatry & Neurology Psychiatry; ATTEND Psychiatry & Neurology Psychiatry
DX: F31.9 Bipolar disorder, unspecified (principal); L03.114 Cellulitis of left upper limb; I45.10 Unspecified right bundle-branch block; F43.10 Post-traumatic stress disorder, unspecified; R94.6 Abnormal results of thyroid function studies; F19.21 Other psychoactive substance dependence, in remission; T14.91 Suicide attempt; S51.812A Laceration without foreign body of left forearm, initial encounter; X78.9XXA Intentional self-harm by unspecified sharp object, initial encounter; R74.0 Nonspecific elevation of levels of transaminase and lactic acid dehydrogenase [LDH]; Z81.1 Family history of alcohol abuse and dependence; Y92.199 Unspecified place in other specified residential institution as the place of occurrence of the external cause; Z59.0 Homelessness; Z86.14 Personal history of Methicillin resistant Staphylococcus aureus infection; Z86.59 Personal history of other mental and behavioral disorders; Z79.899 Other long term (current) drug therapy; Z79.1 Long term (current) use of non-steroidal anti-inflammatories (NSAID)